=== PATIENT | male | born 1950 | race Caucasian/White ===

== ENCOUNTER 2025-07-25 19:05 | Emergency (ER) | payer OTHER, SELFPAY ==
[2025-07-25 19:15] VITALS: BP 117/89
[2025-07-25 19:40] LABS: Hematocrit 40.5 % (39.0-52.0); Hemoglobin 13.9 g/dL (13.0-18.0); Mean Corp Hgb Conc. 34.3 g/dL (33.0-37.0); Mean Corpuscular Volume 100.5 fL (80.0-94.0); Nucleated Red Blood Cells % 0 % (-); Platelet Count 212 10^3/uL (130-400); Red Cell Dist. Width 15.2 % (11.5-14.5)
[2025-07-25 20:09] LABS: ALT (SGPT) 24 U/L (0-50); AST (SGOT) 35 U/L (17-59); Albumin 4.8 g/dl (3.5-5.0); Alkaline Phosphatase 69 U/L (38-126); Blood Urea Nitrogen 32 mg/dl (9-20); Calcium 9.7 mg/dl (8.4-10.2); Carbon Dioxide 25 mmol/L (22-30); Chloride 106 mmol/L (98-107); Glucose 99 mg/dl (70-99); Potassium 4.4 mmol/L (3.5-5.1); Sodium 137 mmol/L (135-145); Total Protein 7.6 g/dl (6.3-8.2); eGFR > 60.00
[2025-07-25 20:47] LABS: Troponin I < 0.012 ng/ml
[2025-07-25 21:46] VITALS: BP 125/97
[2025-07-25 22:00] VITALS: BP 127/95
[2025-07-25 22:56] LABS: INR 1.92; PT 22.1 Sec (11.4-14.6)
[2025-07-25 23:00] VITALS: BP 113/90
[2025-07-26] VITALS: BP 120/89
--- NOTE | 2025-07-26 00:03 | ED.GENMED ---
History of Present Illness
General
Chief Complaint: Chest Pain
Source: patient, spouse and previous hospital records
Exam Limitations: none
Time Seen by Provider: 07/25/25 22:09
Nursing documentation reviewed up to this point in time: agreed with
History of Present Illness
History of Present Illness:
The patient is a 75-year-old male with a history of paroxysmal atrial fibrillation, nonsustained V. tach, congestive heart failure with reduced EF of 45%, CAD with [place], PCI in 2002, tachybradycardia syndrome, AICD, remote history of DVT/PE, vena cava
filter, hypertension, hyperlipidemia, prostate cancer, presenting with recurrent episodes of AFib, characterized by palpitations and an elevated heart rate reaching approximately 125 beats per minute. The patient reports experiencing these episodes
approximately once a week, lasting up to eight hours. Intermittent A-fib has been an ongoing issue since May. Notably, an episode a couple of weeks ago persisted for two days, necessitating a visit to the [facility], where he
underwent cardioversion on July 13. This was the patients third or fourth cardioversion, with prior occurrences several years prior.
The patient first experienced symptoms today at around 1:30 PM. Accompanying symptoms include mild chest discomfort, a sensation guerline to having run a marathon, shortness of breath, lightheadedness, and occasional high blood pressure during episodes.
No syncope or hypotension reported. The patient currently feels improved, symptoms have resolved. Additionally, there are no recent changes in weight or significant edema observed.
He did take a dose of Lasix today 60 mg. He is prescribed this for as needed use and he took it today due to some lower extremity edema that he noted yesterday. Lower extremity edema has since resolved.
Prior to today, his last dose of Lasix was July 14, the day following ED visit at [facility] and cardioversion.
He follows with Dr. Gillis but has been evaluated by Dr. Cuellar here and underwent AICD generator change and a new RA lead placement August 2021. Patient spoke with his station agent and was recommended to follow-up with Dr. Olsen. He states
his station agent spoke to Dr. Olsen's office on Friday, patient is awaiting telephone call from Dr. Olsen's office to schedule an appointment.
The patient utilizes a pacemaker/defibrillator, which was adjusted in October to provide better rhythm control. They also mention a change in sotalol dosage in May from 120 mg to 160 mg. Currently, the patient takes warfarin with an INR of 2.4 1
week ago, indicating stable control. There has been no recent change in Coumadin dosage.
Past History
Past History
ED Past Medical History: Arrthythmia (Atrial fibrillation; nonsustained V. tach), CAD, Cancer (Prostate), CHF, GERD, HTN, Hypercholesterolemia and [place]
ED Past Surgical History: Bowel resection, Cardiac (AICD, PCI 2002), Orthopedic and Other (IVC filter 2002)
Social History
Tobacco: Non-smoker
Alcohol: Occasional
Personal:
Living: with family
Employment: Retired
Family History
Family History: Other (Noncontributory)
Phy Exam
Physical Exam
Physical Exam:
GENERAL: 75-year-old gentleman appears his stated age, bright and alert, pleasant, appears in no acute distress. is accompanying.
EYE: anicteric
NECK: Supple, nontender, no meningismus, no significant adenopathy.
ENT: oral mucosa is moist. No rhinorrhea.
CARDIAC: Regular rate and rhythm. no murmur.
LUNGS: Clear breath sounds bilaterally, no acute respiratory distress, no wheezes/rales/rhonchi
ABDOMEN: Soft, nondistended, without focal tenderness, no r/g, normoactive BS.
NEUROLOGICAL: Alert and oriented x3, no focal neuro deficits.
SKIN: Warm and dry, normal color, skin intact. No rash.
MUSCULOSKELETAL: No C/C/E. peripheral pulses are full and equal b/l. No palpable tenderness.
PSYCH: Normal and appropriate interaction.
Scores
Heart Score for Chest Pain Patients
STEMI patient?: No
History: Slightly or Non-Suspicious
ECG: Normal
Age: >/= 65 years
Risk Factors: >/= 3 Risk Factors or History of CAD
Troponin: </= Normal Limit
Heart Score for Chest Pain Patients: 4
Heart Score Risk: 20.3% MACE over next 6 weeks
Course
Orders/Labs/Results
Orders:
Orders
07/25/25 19:07
ECG [Electrocardiogram (*1)] Urgent
Reason for Study: Atrial Fibrillation
EKG- Treatment ONCE
07/25/25 19:30
Complete Blood Count/With Diff Urgent
Comprehensive Metabolic Panel Urgent
07/25/25 20:16
NT-proBNP Urgent
Troponin I Urgent
07/25/25 22:28
Interrogate Pacemaker- Treatment ONCE
07/25/25 22:29
CR Chest - 2 Views Urgent
Comment:
Reason For Exam: SOB, CP with palpitations.
07/25/25 22:38
Prothrombin Time Urgent
07/26/25 00:03
3 Minute Walk Test [3 Minute Walk Test- Treatment] ONCE
Abnormal Lab Results
07/25/25 07/25/25
19:30 22:38
RBC 4.03 L 10^6/uL
(4.70-6.10)
MCV 100.5 H fL
(80.0-94.0)
MCH 34.5 H pg
(27.0-31.0)
RDW 15.2 H %
(11.5-14.5)
Absolute Monos (auto) 0.7 H 10^3/uL
(0.1-0.6)
Monocytes % 9.5 H %
(1.7-9.3)
Eosinophils % 7.8 H %
(0-6)
PT 22.1 H Sec
(11.4-14.6)
BUN 32 H mg/dl
(9-20)
07/25/25 19:30
07/25/25 19:30
Vital Signs
Initial and Last Documented VS:
Initial Vital Signs
Temp Pulse Resp BP Pulse Ox
98.4 F 75 18 117/89 97
07/25/25 19:15 07/25/25 19:15 07/25/25 19:15 07/25/25 19:15 07/25/25 19:15
Last Documented Vital Signs
Temp Pulse Resp BP Pulse Ox
98.4 F 85 16 120/89 100
07/25/25 19:15 07/26/25 00:10 07/26/25 00:10 07/26/25 00:00 07/26/25 00:10
MDM/Problems Addressed
Differential Diagnosis Includes:
The Differential Diagnosis includes, in no particular order and is not limited to:
1. Atrial Fibrillation with Rapid Ventricular Response
2. Congestive Heart Failure Exacerbation
3. Valvular Heart Disease
4. Ischemic Heart Disease
5. Pulmonary Embolism
6. Acute Coronary Syndrome
7. Thyrotoxicosis
8. Cardiomyopathy
9. Hypertensive Emergency
10. Electrolyte Imbalance
MDM/Problems Addressed:
Problems addressed: Palpitations, chest pain, shortness of breath. Intermittent generally occurring once per week over the past 2 months.
Significant concern for paroxysmal atrial fibrillation, symptomatic A-fib, other concern is acute on chronic CHF.
EKG shows AV sequential pacing, similar to previous. There is no evidence of A-fib on EKG nor nurse monitoring.
Labs thus far are unremarkable save for elevated BNP of 1999. I have no old BNPs to compare.
Troponin is negative. With ongoing chest discomfort since 1:30 this afternoon, normal troponin, ACS is unlikely.
Patient took a dose of Lasix 60 mg this afternoon and admits to feeling markedly improved/symptoms have resolved to this evening. Thus concern for an element of CHF which was already improved with Lasix.
Will check chest x-ray, will interrogate AICD.
Will check PT/INR.
Will consider 3-minute walk test.
Chronic conditions affecting care: HTN, CAD, Cardiomyopathy and Arrhythmia
Acute Exacerbation and/or Progression of Chronic Illness: Cardiomyopathy
*Radiology
Radiology exam reviewed: preliminary read by ED provider (Chest x-ray is unremarkable. Unchanged from previous.)
*Pulse Oximetry
SaO2: 95
Oxygen Mode of Delivery: Room air
Patient hypoxic: no
*EKG
Interpreted by ED Provider?: Yes
Interpretation: abnormal
Comparison EKG: no changes (Unchanged from previous August 2021)
Rate: normal
Rhythm: av sequential
*Paper Tube Cutter Interpretation
Rate: normal
Rhythm: av sequential
*Critical Care Note
Total Time (30-74mins, 75-104mins- exclusive of procedures): Not Applicable
Update Note
Update Note:
AICD interrogation from July 14 to today, shows no episode of A-fib today. Last episode occurred July 21. Reporting the longest episode of atrial tachycardia/A-fib was 2 minutes.
Concern for palpitations, shortness of breath and chest discomfort today may have been CHF related, improved with an oral dose of Lasix 60 mg.
Chest x-ray is unremarkable, unchanged from previous 2020.
INR slightly low at 1.92.
Patient has successfully completed 3-minute walk test, walking briskly around the ED department without difficulty. No chest pain or shortness of breath, no palpitations and monitor shows paced rhythm in the 80s to 90s. Pulse ox remains 98%.
Monitor continues to show paced rhythm. There has been no episodes of A-fib and he remains asymptomatic.
Will discharge to home with plan for follow-up with [facility], Dr. Olsen as recommended by patient's primary station agent. Also recommend prompt follow-up with his own station agent, Dr. Gillis.
Encouraged to continue current medications, encouraged to weigh himself daily and record results.
Return precautions discussed.
ED Attending Note
-
Portions of this chart may have been created with voice recognition software.� Occasional wrong word or��sound alike� substitutions may have occurred due to the inherent limitations of voice recognition software.
Discharge Plan
Departure
Patient Disposition: Home (Routine Discharge)
Date of Disposition: 07/26/25
Time of Disposition: 00:24
Patient with high blood pressure during this ER visit?: No
Condition: Good
Discharge Problem:
Acute exacerbation of chronic heart failure, History of paroxysmal atrial fibrillatio, Nonspecific chest pain
Instructions: *[facility] Heart Failure Instructions
Prescriptions:
No Action
furosemide 40 MG tablet
60 mg PO DAILY
cetirizine 10 MG tablet
10 mg PO DAILY
aspirin 81 MG tablet,delayed release (DR/EC)
81 mg PO DAILY
potassium chloride 20 MEQ tablet,ER particles/crystals
20 meq PO DAILYPRN PRN (Reason: prn)
pravastatin 10 MG tablet
10 mg PO DAILY
pantoprazole 40 MG tablet,delayed release (DR/EC)
40 mg PO DAILY
ezetimibe 10 MG tablet
10 mg PO DAILY
coenzyme [id number] [Co Q-10 (with Vit E)] 1 EACH capsule
1 ea PO DAILY
sotalol 160 mg Tablet
160 mg PO BID
warfarin [Coumadin] 4 mg Tablet
4 mg PO DAILY
Rx Instructions:
5 days- all days except and friday
mexiletine 150 mg Capsule
150 mg PO BID
warfarin [Coumadin] 5 mg Tablet
5 mg PO DAILY
Rx Instructions:
2 days- only take on and friday
colchicine 0.6 mg Tablet
0.6 mg PO DAILY
fluticasone propionate [Flonase] 50 mcg/actuation [place],Suspension
1 spray INTRANASAL BID
valsartan 40 mg Tablet
40 mg PO BID
allopurinol 200 mg Tablet
400 mg PO DAILY
Referrals:
Alyson Beyer DO [Family Provider, Family Practice]
Interventions
Interventions:
*Risk Screen - Suicide Last Done: 07/25/25 19:15
*General Assessment Last Done: 07/25/25 19:15
*Neglect/Abuse Screening Last Done: 07/25/25 19:15
*ED- Fall Risk Assessment Last Done: 07/25/25 19:15
*ED COVID-19 Vaccine History Last Done: 07/25/25 19:15
*Nursing Disposition Last Done: 07/26/25 00:41
ED- Cardiac Assessment Last Done: 07/25/25 23:21
Discharge Date and Time
Discharge Date/Time: 07/26/25 00:41
Print Language: [place]
== END 2025-07-26 00:41 | disposition home or self-care (01) ==
LOC: EMR 19:05
PROVIDERS: Emergency Medicine; EMERGENCY PHYSICIAN Emergency Medicine; FAMILY PHYSICIAN Family Medicine
DX: I11.0 Hypertensive heart disease with heart failure (principal); I50.22 Chronic systolic (congestive) heart failure; R07.89 Other chest pain; I48.0 Paroxysmal atrial fibrillation; I25.10 Atherosclerotic heart disease of native coronary artery without angina pectoris; E78.00 Pure hypercholesterolemia, unspecified; Z86.711 Personal history of pulmonary embolism; Z86.718 Personal history of other venous thrombosis and embolism; Z95.5 Presence of coronary angioplasty implant and graft
CPT/HCPCS: 99285; 71046; 80053; 83880; 84484; 85025; 85610; 93005